=== PATIENT | female | born 1950 | race Caucasian/White ===

== ENCOUNTER 2021-12-14 10:11 | Day surgery (SDC) | payer OTHER ==
[~2021-12-14] VITALS: Ht 157.5 cm; Wt 87.6 kg
[~2021-12-14 10:11] MED LIST: ASPI325 PO; ASPI81CH PO; Anastrozole1 GM PO; GABA300 PO; HYDACE10B PO; LORTAB 5-325 M1 EACH PO; MISO200 PO; OMEP20ER PO; ZESTORETIC 20-121 EA
[2021-12-14] MEDS ORDERED: AMLO5 PO (10:46)
--- NOTE | 2021-12-14 10:53 | NUR ---
12/14/21 1053 Cameron Mc CALL LIGHT WITHIN REACH. TETRACAINE AT 1049 AND PLEDGETT AT 1050 IN LEFT EYE
== END 2021-12-14 12:46 | disposition home or self-care (01) ==
LOC: ORSCSDS 10:11
PROVIDERS: Ophthalmology
PROC: 08RK3JZ Replacement of Left Lens with Synthetic Substitute, Percutaneous Approach (ICD-10-PCS; principal; 2021-12-14 11:30)
DX: H25.13 Age-related nuclear cataract, bilateral (principal); I10 Essential (primary) hypertension; R01.1 Cardiac murmur, unspecified; Z79.899 Other long term (current) drug therapy
CPT/HCPCS: J2001; J2250; J3010; J3301; J7040; V2632

== ENCOUNTER 2021-12-30 10:29 | Day surgery (SDC) | payer OTHER ==
[~2021-12-30] VITALS: Ht 157.5 cm; Wt 88.1 kg
[~2021-12-30 10:29] MED LIST changes: +AMLO5 PO; +LISI20 PO; +Norco 7.5-3251 EACH PO; +Preservision A1 EACH PO
--- NOTE | 2021-12-30 10:55 | NUR ---
12/30/21 1055 Cameron Mc CALL LIGHT WITHIN REACH. GERRI AT 1044 PLEJESSICA AT 1045 IN THE RIGHT EYE
== END 2021-12-30 11:50 | disposition home or self-care (01) ==
LOC: ORSCSDS 10:29
PROVIDERS: Ophthalmology
PROC: 08RK3JZ Replacement of Left Lens with Synthetic Substitute, Percutaneous Approach (ICD-10-PCS; principal; 2021-12-30 12:00)
DX: H25.11 Age-related nuclear cataract, right eye (principal); I10 Essential (primary) hypertension; K21.9 Gastro-esophageal reflux disease without esophagitis; R01.1 Cardiac murmur, unspecified; E66.9 Obesity, unspecified; Z87.891 Personal history of nicotine dependence; Z68.35 Body mass index [BMI] 35.0-35.9, adult; Z79.899 Other long term (current) drug therapy
CPT/HCPCS: J2001; J2250; J3010; J3301; J7040; V2632

== ENCOUNTER 2022-09-29 09:14 | Day surgery (SDC) | payer OTHER ==
[2022-09-26 12:25] LABS: BASOPHILS ABSOLUTE AUTO 0.12 K/mm3 (0.00-0.23); BASOPHILS PERCENT AUTO 1 % (0-2); EOSINOPHILS ABSOLUTE AUTO 0.37 K/mm3 (0.00-0.68); EOSINOPHILS PERCENT AUTO 5 % (0-6); Hematocrit 42.5 % (33.0-51.0); Hemoglobin 13.7 g/dL (11.5-16.0); IMMATURE GRAN ABSOLUTE AUTO 0.02 K/mm3 (0.00-0.10); IMMATURE GRAN PERCENT AUTO 0 % (0-1); LYMPHOCYTES ABSOLUTE AUTO 2.16 K/mm3 (0.84-5.20); LYMPHOCYTES PERCENT AUTO 26 % (21-46); MONOCYTES PERCENT AUTO 8 % (4-13); Mean Corpuscular HGB 28.7 pg (26.0-34.0); Mean Corpuscular HGB Conc 32.2 g/dL (31.5-36.5); Mean Corpuscular Volume 89 fL (80-100); Mean Platelet Volume 10.1 fL (9.1-12.4); NEUTROPHILS ABSOLUTE AUTO 4.94 K/mm3 (1.96-9.15); NEUTROPHILS PERCENT AUTO 60 % (41-73); Platelet Count 250 K/mm3 (150-400); RDW Coefficient Variation 14.1 % (11.7-14.2); RDW Standard Deviation 46.2 fL (35.1-46.3); Red Blood Cell Count 4.77 M/mm3 (3.80-5.20); White Blood Cell Count 8.31 K/mm3 (4.00-11.30)
[2022-09-27 02:18] LABS: Creatinine, Blood 0.92 mg/dL (0.40-1.00); Potassium, Blood 4.2 mmol/L (3.5-5.5)
[~2022-09-29] VITALS: Ht 157.5 cm; Wt 83.3 kg
--- NOTE | 2022-09-29 15:13 | NUR ---
PATIENT TO ROOM AT 1500, TRANSFERRED FROM [facility] TO BED VIA SLIDER SHEET. VSS ON RA, O2 SATS CURRENTLY 96%, LUNGS CLEAR T/O. X4 LAP SITES TO ABDOMEN W/ DERMABOND, APPEAR WNL. PATIENT REPORTS MINIMAL PAIN AT THIS TIME. WARM BLANKETS GIVEN ON PATIENT REQUEST. ORIENTED TO ROOM & CALL LIGHT. DISCUSSED PLAN WITH PATIENT REGARDING THE NEED TO MANAGE PAIN, BE TOLERATING PO DIET, VOID, AND AMBULATE PRIOR TO DISCHARGE. PATIENT VERBALIZED UNDERSTANDING. CALL LIGHT IN REACH.
--- NOTE | 2022-09-29 17:38 | NUR ---
PATIENT AMBULATED TO BATHROOM WELL. UNABLE TO VOID AT THIS TIME. ENCOURAGED MORE PO FLUID INTAKE ALTHOUGH PATIENT HAS BEEN TAKING IN PO FLUIDS WELL.
--- NOTE | 2022-09-29 18:00 | NUR ---
NO ACUTE CHANGES SINCE ARRIVAL TO UNIT. PATIENT EATING & DRINNKING WELL, DENIES N/V. X4 LAP SITES TO ABDOMEN APPEAR WNL. PAIN MANAGED WELL PER EMAR. PATIENT HAS TRIED VOIDING X2 TIMES, ONLY VOIDED 100ML. PVR WAS 518, ENCOURTAGED MORE PO FLUIDS AND TO TRY TO VOID AGAIN HERE SOON, DISCUSSED STRAIGHT CATH IF STILL UNABLE TO VOID. CALL LIGHT IN REACH, WILL REPORT TO ONCOMING RN AT 1900.
--- NOTE | 2022-09-29 19:44 | NUR ---
PROVIDER CONTACT: ALEXANDER SINCLAIR CALLED AND DISCUSSED PT URINARY RETENTION. DISCUSSED THAT PT WAS ABLE TO VOID 100CC OF URINE BUT PER REPORT, PREVIOUS SHIFT BLADDER SCAN SHOWED THAT THE PT HAD >500 IN BLADDER. ORDER TO INSERT CHE CATHETER OBTAINED IF BLADDER SCAN SHOWED >400 CC OF URINE STILL RETAINED WITH INSTRUCTIONS TO TELL PT TO KEEP CHE IN AND HAVE REMOVED AT PROVIDERS OFFICE ON MONDAY OR MONDAY.
--- NOTE | 2022-09-29 21:10 | NUR ---
DISCUSSED RECENT BLADDER SCAN WITH PROVIDER. VERIFIED THAT CHE WAS TO BE PLACED EVEN WITH RECENT BLADDER SCAN OF 297.
--- NOTE | 2022-09-29 21:29 | NUR ---
PT IS A&0X4. IND TO BR. URINATING SMALL AMOUNTS. X4 LAP SITES CLOSED WITH SKIN GLUE. C/D/I. REPORTS SLIGHT ABD TENDERNESS. PER PROVIDER ORDER, CHE CATHETER WAS PLACED AND IS TO REMAIN IN PLACE UNTIL MONDAY OR MONDAY WHEN THE PT CAN GET IT REMOVED FROM DR. MUNOZ'S OFFICE. PT IS EATING, DRINKING, TOLERATING. VOIDING SMALL AMOUNTS. REPORTS LIGHT VAGINAL BLEEDING. DENIES NAUSEA. PAIN WELL MANAGED. VERIFIED THAT SCRIPTS WERE FILLED AND ARE AT HOME. PT IV REMOVED. EDUCATED ON DISCHARGE INSTRUCTIONS. DISCUSSED CHE INFORMATION. GIVEN DC PACKET. PT TAKEN OUT TO PRIVATE VEHICLE VIA WHEELCHAIR. FRIEND IS DRIVING PT HOME. PT DC AT THIS TIME.
== END 2022-09-29 21:29 | disposition home or self-care (01) ==
LOC: ORSCMMR 09:14 → SURS 15:20 → ORSCMMR 16:30
PROVIDERS: Obstetrics & Gynecology
PROC: 8E0W4CZ Robotic Assisted Procedure of Trunk Region, Percutaneous Endoscopic Approach (ICD-10-PCS; principal; 2022-09-29 10:45)
PROC: 0UT7FZZ Resection of Bilateral Fallopian Tubes, Via Natural or Artificial Opening With Percutaneous Endoscopic Assistance (ICD-10-PCS; principal; 2022-09-29 10:45)
PROC: 0UT2FZZ Resection of Bilateral Ovaries, Via Natural or Artificial Opening With Percutaneous Endoscopic Assistance (ICD-10-PCS; principal; 2022-09-29 10:45)
PROC: 0UT9FZZ Resection of Uterus, Via Natural or Artificial Opening With Percutaneous Endoscopic Assistance (ICD-10-PCS; principal; 2022-09-29 10:45)
DX: N85.2 Hypertrophy of uterus (principal); D25.9 Leiomyoma of uterus, unspecified; N85.00 Endometrial hyperplasia, unspecified; N83.292 Other ovarian cyst, left side; N83.291 Other ovarian cyst, right side; N95.2 Postmenopausal atrophic vaginitis; R39.81 Functional urinary incontinence; N73.6 Female pelvic peritoneal adhesions (postinfective); Z85.3 Personal history of malignant neoplasm of breast
CPT/HCPCS: 58573; S2900; 36415; 80048; 84703; 85025; 86850; 86900; 86901; 88307; A9270; J0690; J1100; J2250; J2370; J2405; J2704; J2795; J3010; J7120